=== PATIENT | male | born 2000 | race Caucasian/White ===

== ENCOUNTER 2024-04-23 03:25 | Emergency (ER) | payer BC ==
[2024-04-23 03:36] VITALS: RESP 16
--- NOTE | 2024-04-23 05:00 | ED ---
ENT HPI - General Chief complaint: ENT Stated complaint: Sore Throat Time Seen by Provider: 04/23/24 03:35 Source: patient Mode of arrival: ambulatory Limitations: no limitations - History of Present Illness Initial comments: 23-year-old male presents emergency department with sore throat. Patient has had a sore throat since Friday. Reports that it is painful to swallow. He has not been taking any medications for his symptoms. No fevers. No sensation that his airway is closing off. No difficulty breathing. No sick contacts with similar symptoms. Mother at bedside supplies a packet of information. Reports that the patient has had previous episode of sore throat which led to a diagnosis of mono and thrush. He states the patient was hospitalized for 8 days as he was not eating or drinking. Patient is able to eat and drink at this time. There is no use of steroid inhalers. Patient is not immunosuppressed. No other alleviating, precipitating modifying factors - Related Data Previous Rx's Medication Instructions Recorded Nystatin 100,000 Unit/ml Susp 5 ml PO QID 7 Days #140 ml 04/23/24 [Mycostatin Oral Susp] Allergies Allergy/AdvReac Type Severity Reaction Status Date / Time No Known Allergies Allergy Verified 04/23/24 03:33 Review of Systems ROS Statement: Those systems with pertinent positive or pertinent negative responses have been documented in the HPI. ROS Other: All systems not noted in ROS Statement are negative. Past Medical History Past Medical History: No Reported History Additional Past Medical History / Comment(s): BROKEN ARMS History of Any Multi-Drug Resistant Organisms: None Reported Past Surgical History: No Surgical Hx Reported Past Psychological History: No Psychological Hx Reported Smoking Status: Never smoker Past Alcohol Use History: Occasional Past Drug Use History: None Reported General Exam Limitations: no limitations General appearance: alert, in no apparent distress Head exam: Present: atraumatic, normocephalic, normal inspection Eye exam: Present: normal appearance, PERRL, EOMI. Absent: scleral icterus, conjunctival injection, periorbital swelling ENT exam: Present: mucous membranes moist, other (Some edema of the uvula) Neck exam: Present: normal inspection. Absent: tenderness, meningismus, lymphadenopathy Respiratory exam: Present: normal lung sounds bilaterally. Absent: respiratory distress, wheezes, rales, rhonchi, stridor Cardiovascular Exam: Present: regular rate, normal rhythm, normal heart sounds. Absent: systolic murmur, diastolic murmur, rubs, gallop, clicks GI/Abdominal exam: Present: soft, normal bowel sounds. Absent: distended, tenderness, guarding, rebound, rigid Extremities exam: Present: normal inspection, full ROM, normal capillary refill. Absent: tenderness, pedal edema, joint swelling, calf tenderness Back exam: Present: normal inspection Neurological exam: Present: alert, oriented X3, CN II-XII intact Psychiatric exam: Present: normal affect, normal mood Skin exam: Present: warm, dry, intact, normal color. Absent: rash Course Vital Signs 04/23/24 04/23/24 03:33 05:26 Temperature 98.0 F 98.1 F Pulse Rate 76 68 Respiratory 16 16 Rate Blood Pressure 129/83 122/80 O2 Sat by Pulse 98 98 Oximetry Medical Decision Making - Medical Decision Making Was pt. sent in by a medical professional or institution (, PA, FINANCE SPECIALIST, urgent care, hospital, or prison...) When possible be specific @ -No Did you speak to anyone other than the patient for history (EMS, parent, family, police, friend...)? What history was obtained from this source @ -I spoke with the patient's mother for history Did you review nursing and triage notes (agree or disagree)? Why? @ -I reviewed and agree with nursing and triage notes Were old charts reviewed (outside hosp., previous admission, EMS record, old EKG, old radiological studies, urgent care reports/EKG's, prison records)? Report findings @ -No old charts were reviewed Differential Diagnosis (chest pain, altered mental status, abdominal pain women, abdominal pain men, vaginal bleeding, weakness, fever, dyspnea, syncope, headach e, dizziness, GI bleed, back pain, seizure, CVA, palpatations, mental health, musculoskeletal)? @ -Uvulitis, strep pharyngitis, COVID, thrush EKG interpreted by me (3pts min.). @ -Not done X-rays interpreted by me (1pt min.). @ -None done CT interpreted by me (1pt min.). @ -None done U/S interpreted by me (1pt. min.). @ -None done What testing was considered but not performed or refused? (CT, X-rays, U/S, labs)? Why? @ -None What meds were considered but not given or refused? Why? @ -None Did you discuss the management of the patient with other professionals (professionals i.e. , PA, FINANCE SPECIALIST, lab, RT, psych nurse, social services technician, aluminum boat inspector, teacher, neighborhood conservation officer, watch case polisher)? Give summary @ -No Was smoking cessation discussed for >3mins.? @ -No Was critical care preformed (if so, how long)? @ -No Were there social determinants of health that impacted care today? How? (Homelessness, low income, unemployed, alcoholism, drug addiction, transportation, low edu. Level, literacy, decrease access to med. care, fci, rehab)? @ -No Was there de-escalation of care discussed even if they declined (Discuss DNR or withdrawal of care, Hospice)? DNR status @ -No What co-morbidities impacted this encounter? (DM, HTN, Smoking, COPD, CAD, Cancer, CVA, ARF, Chemo, Hep., AIDS, mental health diagnosis, sleep apnea, morbid obesity)? @ -None Was patient admitted / discharged? Hospital course, mention meds given and route, prescriptions, significant lab abnormalities, going to OR and other pertinent info. @ -Upon arrival patient seen and evaluated in room 29. Thorough history and physical exam was performed. Patient is swabbed for COVID, influenza and strep. Testing is negative. Results are discussed with patient. He does have signs of uvulitis. Mother states that she is extremely concerned as patient has a previous history of sore throat with hospitalization. He is eating and drinking at this time. I informed the mother that I can cover the patient with nystatin as she is highly concerned for thrush. Mother was agreeable to this. He has no signs of tonsillitis or peritonsillar abscess. I recommended that the patient follow-up with his ENT for further management of the sore throat return for any new or worsening symptoms Undiagnosed new problem with uncertain prognosis? @ -No Drug Therapy requiring intensive monitoring for toxicity (Heparin, Nitro, Insulin, Cardizem)? @ -No Were any procedures done? @ -No Diagnosis/symptom? @ -Acute uvulitis Acute, or Chronic, or Acute on Chronic? @ -Acute Uncomplicated (without systemic symptoms) or Complicated (systemic symptoms)? @ -Complicated Side effects of treatment? @ -No Exacerbation, Progression, or Severe Exacerbation? @ -No Poses a threat to life or bodily function? How? (Chest pain, [place], [place], pneumonia, PE, COPD, DKA, ARF, appy, cholecystitis, CVA, Diverticulitis, Homicidal, Suicidal, threat to staff... and all critical care pts) @ -No - Lab Data Lab Results 04/23/24 04/23/24 Range/Units 03:56 03:56 Influenza Type A (PCR) Not Detected (Not Detectd) Influenza Type B (PCR) Not Detected (Not Detectd) RSV (PCR) Not Detected (Not Detectd) SARS-CoV-2 (PCR) Not Detected (Not Detectd) Group A Strep (PCR) NOT DETECTED (Not Detectd) Disposition Clinical Impression: Pharyngitis Disposition: HOME SELF-CARE Condition: Stable Instructions (If sedation given, give patient instructions): Pharyngitis (ED) Additional Instructions: Please alternate taking Tylenol 1000 mg with Motrin 600 mg every 4 hours. Monitor your symptoms. If they continue to worsen in the next 24 hours, start the nystatin. If you get to the point where you cannot eat or drink, you must return to the emergency department Prescriptions: Nystatin 100,000 Unit/ml Susp [Mycostatin Oral Susp] 5 ml PO QID 7 Days #140 ml Is patient prescribed a controlled substance at d/c from ED?: No Referrals: Taryn Corona MD [Primary Care Provider] - 1-2 days Time of Disposition: 05:00
[2024-04-23] MEDS: dexAMETHasone 2 MG TAB PO STA (05:23)
[2024-04-23] MEDS: ACETAMINOPHEN TAB 500 MG TAB PO STA (05:23)
[2024-04-23 05:28] VITALS: BP 122/80; PULSE 68; TEMP 98.1
== END 2024-04-23 05:26 | disposition home or self-care (01) ==
LOC: EC 03:25
DX: J02.9 Acute pharyngitis, unspecified (principal)
CPT/HCPCS: 87651; 87636; 99283; J8540